=== PATIENT | male | born 1975 | race Caucasian/White ===

== ENCOUNTER 2018-01-21 10:28 | Emergency (ER) | payer OTHER ==
[2018-01-21] MEDS ORDERED: LORAZEPAM 1 MG TABLET ONE (11:31)
--- NOTE | 2018-01-21 12:33 | ER ---
Nurse's Notes [facility] Name: Dilan Hernandez Age: 42 yrs Sex: Male : 1975 Arrival Date: 01/21/2018 Time: 10:30 Bed 14 Private MD: Diagnosis: Anxiety disorder, unspecified Presentation: 01/21 10:31 Presenting complaint: Patient states: FB in left eye 2 days ago. c/o anxiety x 2 days sv after getting upsetting news. Transition of care: patient was not received from another setting of care. Onset of symptoms was January 19, 2018. Care prior to arrival: None. 10:31 Method Of Arrival: Ambulatory sv 10:31 Acuity: HALIE 3 sv 12:30 Risk Assessment: Do you want to hurt yourself or someone else? Patient reports no aj1 desire to harm self or others. Initial Sepsis Screen: Does the patient meet any 2 criteria? No. Patient's initial sepsis screen is negative. Does the patient have a suspected source of infection? No. Patient's initial sepsis screen is negative. Historical: - Allergies: 10:33 No Known Allergies; sv - Home Meds: 10:33 None [Active]; sv - PMHx: 10:33 Anxiety; sv - PSHx: 10:33 right shoulder; sv - Immunization history:: Flu vaccine is not up to date. - Social history:: Smoking status: Patient/guardian denies using tobacco. - Ebola Screening: : No symptoms or risks identified at this time. Screenin:40 Abuse screen: Denies threats or abuse. Denies injuries from another. Nutritional aj1 screening: No deficits noted. Tuberculosis screening: No symptoms or risk factors identified. 12:30 Fall Risk None identified. aj1 Assessment: 10:40 General: Appears in no apparent distress. uncomfortable, Behavior is cooperative, aj1 anxious. Pain: Denies pain. Neuro: Level of Consciousness is awake, alert, obeys commands. Cardiovascular: Patient's skin is warm and dry. Respiratory: Airway is patent Respiratory effort is even, unlabored, Respiratory pattern is regular, symmetrical. GI: No signs and/or symptoms were reported involving the gastrointestinal system. : No signs and/or symptoms were reported regarding the genitourinary system. EENT: Sclera/Cornea are reddened in outer aspect of conjuctiva of right eye, inner aspect of conjuctiva of right eye, outer aspect of conjuctiva of left eye and inner aspect of conjunctiva of left eye. Derm: Skin is pink, warm \T\ dry. normal. Musculoskeletal: No signs and/or symptoms reported regarding the musculoskeletal system. Circulation, motion, and sensation intact. 11:27 Reassessment: Patient appears in no apparent distress at this time. No changes from aj1 previously documented assessment. Patient and/or family updated on plan of care and expected duration. Pain level reassessed. Patient is alert, oriented x 3, equal unlabored respirations, skin warm/dry/pink. 12:30 Reassessment: Patient appears in no apparent distress at this time. No changes from aj1 previously documented assessment. Patient and/or family updated on plan of care and expected duration. Pain level reassessed. Patient is alert, oriented x 3, equal unlabored respirations, skin warm/dry/pink. Vital Signs: 10:33 BP 175 / 112; Pulse 125; Resp 22; Temp 98.2; Pulse Ox 98% ; Weight 117.93 kg; Height 6 sv ft. 0 in. (182.88 cm); Pain 0/10; 12:15 BP 162 / 75; Pulse 105; Resp 20; Pulse Ox 99% on R/A; aj1 10:33 Body Mass Index 35.26 (117.93 kg, 182.88 cm) sv ED Course: 10:30 Patient arrived in ED. as 10:32 Triage completed. sv 10:33 Arm band placed on. sv 10:40 Patient has correct armband on for positive identification. Bed in low position. Call aj1 light in reach. Side rails up X 1. 10:40 No provider procedures requiring assistance completed. aj1 11:09 Noé Araiza PA is PHCP. [facility] 11:09 Chris Fernandez MD is Attending Physician. [facility] 11:15 Mariana Olivo, CHAPO is Primary Nurse. aj1 12:30 Patient did not have IV access during this emergency room visit. aj1 Administered Medications: 11:26 Drug: Ativan 1 mg Route: PO; aj1 Outcome: 12:31 Discharge ordered by . [facility] 12:35 Discharged to home ambulatory. aj1 12:35 Condition: good 12:35 Discharge instructions given to patient, Instructed on discharge instructions, follow up and referral plans. Demonstrated understanding of instructions, follow-up care. 12:46 Patient left the ED. aj1 Signatures: Mariana Olivo RN RN aj1 Cathy Levy RN RN sv Noé Araiza PA PA jmm Martinez, Amelia as Corrections: (The following items were deleted from the chart) 10:34 10:31 Acuity: HALIE 4 sv sv 11:18 10:40 EENT: No signs and/or symptoms were reported regarding the EENT system. aj1 aj1
--- NOTE | 2018-01-21 12:33 | EDPHYS ---
Physician Documentation [facility] Name: Dilan Hernandez Age: 42 yrs Sex: Male : 1975 Arrival Date: 01/21/2018 Time: 10:30 Bed 14 Private MD: ED Physician Chris Fernandez HPI: 01/21 11:19 This 42 yrs old Male presents to ER via Ambulatory with complaints of Foreign jmm Body In Eye, Anxiety. 11:19 The patient presents to the emergency department with anxiety, over a relationship. jmm Onset: The symptoms/episode began/occurred gradually, 1 year(s) ago. Patient states he became overwhelmed today after receiving news regarding his divorce. The patient states having intermittent episodes anxiety over the past year. Patient denies SI or HI. Patient also complains of FB sensation to the left eye. Patient states he is feeling better since checking into the ED. . Historical: - Allergies: 10:33 No Known Allergies; sv - Home Meds: 10:33 None [Active]; sv - PMHx: 10:33 Anxiety; sv - PSHx: 10:33 right shoulder; sv - Immunization history:: Flu vaccine is not up to date. - Social history:: Smoking status: Patient/guardian denies using tobacco. - Ebola Screening: : No symptoms or risks identified at this time. ROS: 11:19 Constitutional: Negative for fever, chills, and weight loss. jmm 11:19 ENT: Negative for injury, pain, and discharge, Cardiovascular: Negative for chest pain, palpitations, and edema, Respiratory: Negative for shortness of breath, cough, wheezing, and pleuritic chest pain. 11:19 Eyes: Positive for itching. 11:19 Psych: Positive for anxiety. 11:19 All other systems are negative. Exam: 11:19 Head/Face: atraumatic. Neck: Trachea midline, Supple Chest/axilla: Normal chest wall jmm appearance and motion. Cardiovascular: Regular rate and rhythm. No edema appreciated Respiratory: Normal respirations, no respiratory distress appreciated 11:19 Constitutional: The patient appears alert, awake, anxious. 11:19 Eyes: Extraocular movements: intact throughout, Conjunctiva: injected, in the left eye. 11:19 Musculoskeletal/extremity: ROM: intact in all extremities. 11:19 Psych: Behavior/mood is cooperative, anxious, Patient has no thoughts/intents to harm self or others. Vital Signs: 10:33 BP 175 / 112; Pulse 125; Resp 22; Temp 98.2; Pulse Ox 98% ; Weight 117.93 kg; Height 6 sv ft. 0 in. (182.88 cm); Pain 0/10; 12:15 BP 162 / 75; Pulse 105; Resp 20; Pulse Ox 99% on R/A; aj1 10:33 Body Mass Index 35.26 (117.93 kg, 182.88 cm) sv MDM: 11:18 Patient medically screened. [facility] 12:31 Data reviewed: vital signs, nurses notes. Counseling: I had a detailed discussion with [facility] the patient and/or guardian regarding: the historical points, exam findings, and any diagnostic results supporting the discharge/admit diagnosis, the need for outpatient follow up. 12:31 Counseling: I had a detailed discussion with the patient and/or guardian regarding: to m return to the emergency department if symptoms worsen or persist or if there are any questions or concerns that arise at home. 12:31 ED course: Patient refused eye exam. Patient states feeling much better. Patient has no [facility] intent to harm himself or others. . Administered Medications: 11:26 Drug: Ativan 1 mg Route: PO; aj1 Disposition: 01/21/18 12:31 Discharged to Home. Impression: Anxiety disorder, unspecified. - Condition is Stable. - Discharge Instructions: Panic Attacks. - Medication Reconciliation Form, Thank You Letter, Antibiotic Education, Prescription Opioid Use form. - Follow up: Private Physician; When: 2 - 3 days; Reason: Recheck today's complaints, Continuance of care, Re-evaluation by your physician. Addendum: 01/23/2018 13:23 Co-signature as Attending Physician, Chris Fernandez MD I agree with the assessment and k dr plan of care. Signatures: Mariana Olivo RN RN aj1 Cathy Levy RN RN sv Rittger, Kevin, MD MD [facility] Noé Araiza PA PA [facility] Corrections: (The following items were deleted from the chart) 01/21 12:46 12:31 01/21/2018 12:31 Discharged to Home. Impression: Anxiety disorder, unspecified. aj1 Condition is Stable. Forms are Medication Reconciliation Form, Thank You Letter, Antibiotic Education, Prescription Opioid Use. Follow up: Private Physician; When: 2 - 3 days; Reason: Recheck today's complaints, Continuance of care, Re-evaluation by your physician. laura
== END 2018-01-21 12:46 | disposition home or self-care (01) ==
LOC: ER 10:28
DX: F41.9 Anxiety disorder, unspecified (principal)
CPT/HCPCS: 99283